=== PATIENT | female | born 1955 | race Caucasian/White ===

== ENCOUNTER 2017-03-05 08:56 | Observation (INO) | payer OTHER, SELFPAY ==
[~2017-03-05 08:56] MED LIST: Bupivacaine 0.25%/EPINEPHrine 1:200,000 10 ML SDV ONE; Lidocaine 2% 5 ML SDV ONE; Midazolam 1 MG/ML 2 ML SDV ONE; Octyl 2-Cyanoacrylate 1 Tube ONE; Ondansetron 4 MG/2 ML SDV ONE; Propofol 200 MG/20 ML SDV ONE; Rocuronium 10 MG/ML 10 ML Syringe ONE; Scopolamine 1.5 MG Transdermal Patch TRDERM PRN; fentaNYL 100 MCG/2 ML SDV ONE
[2017-03-05] MEDS ORDERED: Bupivacaine 0.25%/EPINEPHrine 1:200,000 10 ML SDV INJECT ONE (09:00)
[2017-03-05] MEDS: Lactated Ringers 1,000 ML IV SCH ×2 (09:20→19:22)
--- NOTE | 2017-03-05 09:20 | PCM.PREANE ---
Preanesthetic Assessment - Anesthesia/Transfusion/Family Hx Anesthesia History: Prior Anesthesia Without Reaction Family History of Anesthesia Reaction: No Transfusion History: No Prior Transfusion(s) Intubation History: Unknown - Review of Systems General: No Symptoms Pulmonary: No Symptoms Cardiovascular: No Symptoms Gastrointestinal: No Symptoms Neurological: No Symptoms Other: Reports: None - Physical Assessment O2 Sat by Pulse Oximetry: 95 Respiratory Rate: 16 Vital Signs: Last Vital Signs Temp 35.6 C 03/05/17 09:10 Pulse 78 03/05/17 09:10 Resp 16 03/05/17 09:10 BP 180/80 H 03/05/17 09:10 Pulse Ox 95 03/05/17 09:10 Height: 1.73 m Weight: 156.036 kg ASA Class: 3 Mental Status: Alert & Oriented x3 Airway Class: Mallampati = 3 Dentition: Reports: Normal Dentition, Broken Tooth/Teeth (lower front (right) x1 ) Thyro-Mental Finger Breadths: 3 Mouth Opening Finger Breadths: 2 ROM/Head Extension: Full Lungs: Clear to Auscultation, Normal Respiratory Effort Cardiovascular: Regular Rate, Regular Rhythm - Allergies Allergies/Adverse Reactions: Allergies Allergy/AdvReac Type Severity Reaction Status Date / Time No Known Allergies Allergy Verified 04/18/15 13:10 - Blood Blood Available: No - Anesthesia Plan Pre-Op Medication Ordered: None - Acknowledgements Anesthesia Type Planned: General Anesthesia Pt an Appropriate Candidate for the Planned Anesthesia: Yes Alternatives and Risks of Anesthesia Discussed w Pt/Guardian: Yes Pt/Guardian Understands and Agrees with Anesthesia Plan: Yes PreAnesthesia Questionnaire HEENT History: Reports: Other (See Below) Other HEENT History: wears glasses, has chipped bottom tooth Cardiovascular History: Reports: Hypertension Respiratory History: Reports: Sleep Apnea Other Respiratory History: uses CPAP Gastrointestinal History: Reports: Helicobacter Pylori Musculoskeletal History: Reports: Arthritis, Back Pain, Chronic Endocrine/Metabolic History: Reports: None (morbid obesity BMI 52.3), Obesity/ BMI 30+ - Past Surgical History Head Surgeries/Procedures: Reports: None HEENT Surgical History: Reports: Eye Surgery GI Surgical History: Reports: Bariatric Procedure, Other (See Below) Other GI Surgeries/Procedures: lap band 2007 - SUBSTANCE USE Smoking Status *Q: Never Smoker Second Hand Smoke Exposure: No Recreational Drug Use History: No - HOME MEDS Home Medications: Home Meds Cholecalciferol (Vitamin D3) [Vitamin D] 5,000 unit PO ASDIRECTED 04/18/15 [ History] Magnesium 500 mg PO DAILY 04/18/15 [History] Turmeric Root Extract [Turmeric] 500 mg PO DAILY 04/18/15 [History] Ubidecarenone [Coq-10] 300 mg PO BID 04/18/15 [History] Carbamide Peroxide [Ear Drops] 2 drop EARBOTH ASDIRECTED PRN 02/26/17 [History] Fluticasone Propionate [Flonase Allergy Relief] 2 spray NASBOTH ASDIRECTED PRN 02/26/17 [History] Losartan Potassium 25 mg PO BEDTIME 02/26/17 [History] Methylsulfonylmethane [MSM] 500 mg PO DAILY 02/26/17 [History] Metoprolol Succinate 100 mg PO BEDTIME 02/26/17 [History] Naproxen Sodium [Aleve] 2 tab PO BID 02/26/17 [History] - CURRENT (IN HOUSE) MEDS Current Meds: Current Medications Hydrocodone Bitart/Acetaminophen ([place] 325-5 Mg) 1 tab PO Q4H PRN PRN Reason: Pain Bupivacaine Liposome (Exparel) 20 ml INFILT ONETIME ONE Stop: 03/05/17 12:01 Cephalexin (Keflex) 500 mg PO Q6HR GINGER Cefazolin Sodium/Dextrose 2 gm (/ Premix) 50 mls @ 100 mls/hr IV ONETIME ONE Stop: 03/05/17 11:29 Lactated Ringer's (Ringers, Lactated) 1,000 mls @ 125 mls/hr IV ASDIRECTED GINGER Morphine Sulfate (Morphine) 2 mg IVPUSH Q1H PRN PRN Reason: Pain (severe 7-10) Scopolamine (Transderm-Scop) 1.5 mg TRDERM .ONCE PRN PRN Reason: Post Op Nausea Discontinued Medications Bupivacaine HCl/Epinephrine Bitart ([place] 0.25%/Epinephrine 1:200,000) 30 ml INJECT ONETIME ONE Stop: 03/05/17 09:01 Bupivacaine HCl/Epinephrine Bitart ([place] 0.25%/Epinephrine 1:200,000) Confirm Administered Dose 50 ml .ROUTE .STK-MED ONE Stop: 03/05/17 07:26 Fentanyl (Sublimaze) Confirm Administered Dose 100 mcg .ROUTE .STK-MED ONE Stop: 03/05/17 07:32 Acetaminophen (Ofirmev) Confirm Administered Dose 100 mls @ as directed IV .STK- MED ONE Stop: 03/05/17 07:35 Lidocaine (Xylocaine-Mpf 2%) Confirm Administered Dose 5 ml .ROUTE .STK-MED ONE Stop: 03/05/17 07:32 Midazolam HCl (Versed 1 Mg/Ml) Confirm Administered Dose 2 mg .ROUTE .STK-MED ONE Stop: 03/05/17 07:32 Octyl Cyanoacrylate (Dermabond Advance) Confirm Administered Dose 1 applic .ROUTE .STK-MED ONE Stop: 03/05/17 07:26 Ondansetron HCl (Zofran) Confirm Administered Dose 4 mg .ROUTE .STK-MED ONE Stop: 03/05/17 07:32 Propofol (Diprivan 20 Ml) Confirm Administered Dose 200 mg .ROUTE .STK-MED ONE Stop: 03/05/17 07:32 Rocuronium [place] (Zemuron) Confirm Administered Dose 100 mg .ROUTE .STK-MED ONE Stop: 03/05/17 07:32
[2017-03-05] MEDS ORDERED: HYDROmorphone 2 MG/ML Syringe ONE ×2 (10:07→10:49)
[2017-03-05] MEDS ORDERED: diphenhydrAMINE 50 MG/ML SDV ONE (10:07)
[2017-03-05] MEDS ORDERED: Dexamethasone 4 MG/ML 5 ML MDV ONE (10:07)
[2017-03-05] MEDS ORDERED: Phenylephrine/Normal Saline 100 MCG/ML 10 ML Syringe ONE (10:11)
[2017-03-05] MEDS ORDERED: fentaNYL 100 MCG/2 ML SDV ONE (10:19)
[2017-03-05] MEDS ORDERED: fentaNYL 100 MCG/2 ML SDV IVPUSH PRN (10:57)
[2017-03-05] MEDS ORDERED: ceFAZolin 2 GM in Premix Bag 1 BAG IV ONE (11:00)
[2017-03-05] MEDS ORDERED: ePHEDrine 50 MG/ML SDV ONE (11:33)
[2017-03-05] MEDS ORDERED: Rocuronium 10 MG/ML 10 ML Syringe ONE (11:49)
[2017-03-05] MEDS ORDERED: Bupivacaine Liposome 1.3% 20 ML SDV INFILT ONE (12:00)
[2017-03-05] MEDS ORDERED: Ketorolac 30 MG/ML SDV ONE (13:40)
--- NOTE | 2017-03-05 14:29 | PCM.POSTAN ---
POST ANESTHESIA ASSESSMENT - VITAL SIGNS Pulse Rate: 89 SaO2: 96 Resp Rate: 14 Blood Pressure: 135/75 - RESPIRATORY Respiratory Status: Respiratory Rate WNL - CARDIOVASCULAR CV Status: Pulse Rate WNL - GASTROINTESTINAL GI Status: No Symptoms - PAIN Pain Score: 3 - OBSERVATIONS Free Text/Narrative:: awake and alert
--- NOTE | 2017-03-05 14:56 | PCM.OPNOTE ---
- General Post-Op/Procedure Note Date of Surgery/Procedure: 03/05/17 Operative Procedure(s): umbilical hernai repair with panniculectomy and umbilicoplasty Pre Op Diagnosis: abdominal pannus Post-Op Diagnosis: abdominal pannus and umbilical hernia Anesthesia Technique: General ET Tube, Local Primary Surgeon: Francesca Leal Tele Grout Sewer Line Repairer: Savanah Douglas EBL in mLs: 100 Complications: None Condition: Good Free Text/Narrative:: Intake & Output 03/04/17 03/05/17 03/05/17 23:59 07:59 15:59 Intake Total 6200 Output Total 1000 Balance 5200 [id number]
--- NOTE | 2017-03-05 15:37 | OR ---
SURGEON: ROMERO MCGINNIS MD DATE OF PROCEDURE: 03/05/2017 PREOPERATIVE DIAGNOSIS: Abdominal pannus. POSTOPERATIVE DIAGNOSIS: Abdominal pannus with large umbilical hernia. PROCEDURE: Umbilical hernia repair with panniculectomy and umbilicoplasty. RHINESTONE SETTER: DEN Anthony ANESTHESIA: General ET tube and local. ESTIMATED BLOOD LOSS: 100 mL. INDICATIONS: Ms. Alexander is a 62-year-old female seen today in evaluation for a panniculectomy and umbilicoplasty. Risks and benefits of this procedure were completed with her and she was in agreement to proceed. Risks were including, but not limited to, bleeding, infection, damage to underlying or overlying structures, possible need for future interventions, possible scarring. This was done for medical necessity, though her insurance company has a preclusion on coverage of this. The patient proceeded as rhodes pay. Risks and benefits of the procedure were discussed with her and she was in agreement to proceed. Risks were including, but not limited to, bleeding, infection, damage to underlying or overlying structures, possible need for future interventions, and possible scarring. PROCEDURE IN DETAIL: After informed consent was obtained, placed on the chart, the patient was brought into the operating theater and laid in supine position. After adequate general anesthetic was obtained, the area was prepped and draped and a time-out was completed to confirm side and site. Attention was then paid to dissection over the lower abdominal incision. Dissection was carried through the skin and subcutaneous tissues taking meticulous care for hemostasis. Dissection was carried down to the abdominal wall and then elevation of the skin flap all the way up to the xiphoid process taking care to isolate the umbilicus. Unfortunately, the umbilicus was noted to have a large fat containing hernia and dissection was then paid here. A 15 blade was used to dissect through the umbilicus itself down and circumferentially around the hernia sac. Once the hernia sac was located, the fat contained in the hernia sac was pressed back into the abdominal wall and the sac itself was transected and oversewn. This was placed into the abdominal wall and the abdominal wall was sutured over top of the hernia stump. Meticulous hemostasis was obtained along this way and three [id number] 0 Ethibond sutures were used to close the large umbilical hernia. Once this was completed, attention was then paid to meticulous hemostasis of the abdominal wall. Once the abdominal wall was hemostased and copiously irrigated 0 Ethibond sutures were used in the midline for plication to repair the diastasis for her loss of domain. Once this was completed, the skin was redraped and the excess was excised for a total of 20 pounds. Once adequately excised and meticulous hemostasis had been obtained, abdominal wall to the rectus muscle plication sutures were then completed with 2-0 PDS sutures in a running fashion from the skin to the abdominal wall fascia to close the space. Once this was completed, the mons was tacked up to the pubic bone to prevent descent and then the area was again irrigated and then closed using a running 2-0 PDS suture for the fascia, running 3-0 Monocryl StrataFix suture for the deep dermis and a running 4-0 StrataFix subcuticular for the skin. Once this was closed, the Exparel had been infiltrated into the abdominal musculature and skin for a total of 20 mL, and the drain size 10 JPs were brought out laterally prior to closure and sutured in place using 3-0 Prolene sutures. Once the skin closure was complete, attention was then paid to dissection of the umbilical stump and an incision was made approximately 19 cm up from the pubic symphysis on the abdominal wall and dissection was carried through the subcutaneous fat using blunt dissection. The umbilicus was located and brought through taking care to preserve the surrounding fat given the underlying hernia dissection. Once this was completed, it was sutured in place using deep 4-0 Monocryl stitches and Dermabond. Once this was done, it was dressed with a Tegaderm border. The lower incision was dressed with Steri-Strips, Xeroform for the drains, and fluffs. A 4 XL abdominal binder was placed over the top of this. The patient tolerated this well. All counts and needles were correct at the end of the case. FOLLOWUP INSTRUCTIONS: The patient will be maintained in the hospital overnight and we will see her with any problems, questions, or concerns. We anticipate discharge within a few days. KARIN / RADHA /[id number]
[2017-03-05] MEDS ORDERED: Morphine 2 MG/ML Syringe IVPUSH PRN (15:41)
[2017-03-05] MEDS: Enoxaparin 40 MG/0.4 ML Syringe SUBCUT SCH (18:08)
[2017-03-05] MEDS: Acetaminophen/HYDROcodone 325-5 MG Tab PO PRN ×2 (18:09→23:25)
[2017-03-05] MEDS: Cephalexin 500 MG Cap PO SCH ×2 (18:09→23:22)
[2017-03-05] MEDS ORDERED: Enoxaparin 40 MG/0.4 ML Syringe ONE (18:18)
[2017-03-06] MEDS: Lactated Ringers 1,000 ML IV SCH (03:29)
[2017-03-06] MEDS: Acetaminophen/HYDROcodone 325-5 MG Tab PO PRN ×4 (05:12→20:37)
[2017-03-06] MEDS: Cephalexin 500 MG Cap PO SCH ×3 (05:13→18:13)
[2017-03-06] MEDS ORDERED: Sodium Chloride 0.9% 2.5 ML Syringe FLUSH PRN (10:23)
[2017-03-06] MEDS ORDERED: Sodium Chloride 0.9% 10 ML Syringe FLUSH PRN (10:23)
--- NOTE | 2017-03-06 10:23 | PCM.PN ---
- General Info Date of Service: 03/06/17 Admission Dx/Problem (Free Text): s/p abdominoplasty and incidental umbilical hernia repair POD 1 Subjective Update: Doing quite well with pain control and ambulating. Urinating. No bm yet and I would like to see flatus before discharge to ensure hernia repair without complication. In addition, she is getting up with some assistance. Since she does live by herself, ensuring ability to do all of the adl's herself is important. She will stay until tomorrow am to accomplish this. Functional Status: Reports: Pain Controlled, Tolerating Diet, Ambulating, Urinating, Incentive Spirometry - Review of Systems General: Denies: Fever, Weakness, Chills Gastrointestinal: Reports: Abdominal Pain. Denies: Flatus Musculoskeletal: Reports: No Symptoms Skin: Reports: No Symptoms Neurological: Reports: No Symptoms Psychiatric: Reports: No Symptoms - Patient Data Vitals - Most Recent: Last Vital Signs Temp 97.8 F 03/06/17 08:00 Pulse 83 03/06/17 08:00 Resp 22 H 03/06/17 08:00 BP 117/68 03/06/17 08:00 Pulse Ox 91 L 03/06/17 08:00 Weight - Most Recent: 344 lb I&O - Last 24 Hours: Intake & Output 03/05/17 03/06/17 03/06/17 23:59 07:59 15:59 Intake Total 1009 3096 Output Total 137 2850 Balance 872 246 Med Orders - Current: Current Medications Hydrocodone Bitart/Acetaminophen ([place] 325-5 Mg) 1 tab PO Q4H PRN PRN Reason: Pain Last Admin: 03/06/17 05:12 Dose: 1 tab Cephalexin (Keflex) 500 mg PO Q6HR [facility] Last Admin: 03/06/17 05:13 Dose: 500 mg Enoxaparin Sodium (Lovenox) 40 mg SUBCUT Q24H [facility] Last Admin: 03/05/17 18:08 Dose: 40 mg Fentanyl (Sublimaze) 50 mcg IVPUSH .Q5MIN PRN PRN Reason: Pain Last Admin: 03/05/17 14:35 Dose: 50 mcg Lactated Ringer's (Ringers, Lactated) 1,000 mls @ 125 mls/hr IV ASDIRECTED GINGER Last Admin: 03/06/17 03:29 Dose: 125 mls/hr Morphine Sulfate (Morphine) 2 mg IVPUSH Q1H PRN PRN Reason: Pain (severe 7-10) Scopolamine (Transderm-Scop) 1.5 mg TRDERM .ONCE PRN PRN Reason: Post Op Nausea Last Admin: 03/05/17 09:19 Dose: 1.5 mg Discontinued Medications Bupivacaine HCl/Epinephrine Bitart (Marcaine 0.25%/Epinephrine 1:200,000) 30 ml INJECT ONETIME ONE Stop: 03/05/17 09:01 Last Admin: 03/05/17 16:25 Dose: Not Given Bupivacaine HCl/Epinephrine Bitart (Marcaine 0.25%/Epinephrine 1:200,000) Confirm Administered Dose 50 ml .ROUTE .STK-MED ONE Stop: 03/05/17 07:26 Bupivacaine Liposome (Exparel) 20 ml INFILT ONETIME ONE Stop: 03/05/17 12:01 Last Admin: 03/05/17 16:25 Dose: Not Given Dexamethasone (Dexamethasone) Confirm Administered Dose 20 mg .ROUTE .STK-MED ONE Stop: 03/05/17 10:08 Diphenhydramine HCl (Benadryl) Confirm Administered Dose 50 mg .ROUTE .STK-MED ONE Stop: 03/05/17 10:08 Enoxaparin Sodium (Lovenox) Confirm Administered Dose 40 mg .ROUTE .STK-MED ONE Stop: 03/05/17 18:19 Last Admin: 03/05/17 18:37 Dose: Not Given Ephedrine Sulfate (Ephedrine Sulfate) Confirm Administered Dose 50 mg .ROUTE .STK-MED ONE Stop: 03/05/17 11:34 Fentanyl (Sublimaze) Confirm Administered Dose 100 mcg .ROUTE .STK-MED ONE Stop: 03/05/17 07:32 Fentanyl (Sublimaze) Confirm Administered Dose 100 mcg .ROUTE .STK-MED ONE Stop: 03/05/17 10:20 Hydromorphone HCl (Dilaudid) Confirm Administered Dose 2 mg .ROUTE .STK-MED ONE Stop: 03/05/17 10:08 Hydromorphone HCl (Dilaudid) Confirm Administered Dose 2 mg .ROUTE .STK-MED ONE Stop: 03/05/17 10:50 Cefazolin Sodium/Dextrose 2 gm (/ Premix) 50 mls @ 100 mls/hr IV ONETIME ONE Stop: 03/05/17 11:29 Last Admin: 03/05/17 16:25 Dose: Not Given Acetaminophen (Ofirmev) Confirm Administered Dose 100 mls @ as directed IV .STK- MED ONE Stop: 03/05/17 07:35 Ketorolac Tromethamine (Toradol) Confirm Administered Dose 30 mg .ROUTE .STK- MED ONE Stop: 03/05/17 13:41 Lidocaine (Xylocaine-Mpf 2%) Confirm Administered Dose 5 ml .ROUTE .STK-MED ONE Stop: 03/05/17 07:32 Midazolam HCl (Versed 1 Mg/Ml) Confirm Administered Dose 2 mg .ROUTE .STK-MED ONE Stop: 03/05/17 07:32 Octyl Cyanoacrylate (Dermabond Advance) Confirm Administered Dose 1 applic .ROUTE .STK-MED ONE Stop: 03/05/17 07:26 Ondansetron HCl (Zofran) Confirm Administered Dose 4 mg .ROUTE .STK-MED ONE Stop: 03/05/17 07:32 Phenylephrine HCl (Phenylephrine In Ns 100 Mcg/Ml) Confirm Administered Dose 1 mg .ROUTE .STK-MED ONE Stop: 03/05/17 10:12 Propofol (Diprivan 20 Ml) Confirm Administered Dose 200 mg .ROUTE .STK-MED ONE Stop: 03/05/17 07:32 Rocuronium [place] (Zemuron) Confirm Administered Dose 100 mg .ROUTE .STK-MED ONE Stop: 03/05/17 07:32 Rocuronium [place] (Zemuron) Confirm Administered Dose 100 mg .ROUTE .STK-MED ONE Stop: 03/05/17 11:50 - Exam Quality Assessment: DVT Prophylaxis (lovenox and pas boots). No: Supplemental Oxygen, Urine Catheter General: Alert, Oriented, Cooperative HEENT: EOMI Lungs: Normal Respiratory Effort Extremities: Non-Tender, No Pedal Edema Skin: Warm, Dry Wound/Incisions: Healing Well, Dressing Dry and Intact, Drainage (in PRATIBHA's is scant seosanguinous currently. ) Psy/Mental Status: Alert, Normal Affect, Normal Mood - Problem List & Annotations (1) Status post abdominoplasty SNOMED Code(s): 731822455 Code(s): Z98.890 - OTHER SPECIFIED POSTPROCEDURAL STATES Status: Acute Priority: Medium Current Visit: Yes (2) S/P hernia repair SNOMED Code(s): 51858255515618 Code(s): Z98.890 - OTHER SPECIFIED POSTPROCEDURAL STATES; Z87.19 - PERSONAL HISTORY OF OTHER DISEASES OF THE DIGESTIVE SYSTEM Status: Acute Priority: Medium Current Visit: Yes - Problem List Review Problem List Initiated/Reviewed/Updated: Yes - My Orders Last 24 Hours: My Active Orders 03/05/17 10:00 Patient Status [ADT] Routine 03/05/17 10:49 EKG 12 Lead [EKG Documentation Completion] [RC] ROUTINE 03/05/17 12:00 Acetaminophen/HYDROcodone [[place] 325-5 MG] 1 tab PO Q4H PRN 03/05/17 15:41 Ambulate [RC] ASDIRECTED Drain Management [RC] ASDIRECTED Positioning, Patient [RC] ASDIRECTED Morphine 2 mg IVPUSH Q1H PRN Abdominal Binder [OM.PC] Routine 03/05/17 19:00 Cephalexin [Keflex] 500 mg PO Q6HR Enoxaparin [Lovenox] 40 mg SUBCUT Q24H 03/05/17 Dinner Regular Diet [DIET] - Plan Plan:: Doing well and continue to improve. Pain controlled. Waiting on flatus and will recheck labs for electrolytes and hb/wbc tomorrow. HLIVF Ambulate PAS and lovenox [place] and morphine if needed keflex for drains ppx binder at all time and patient position home meds and home bipap for sleep
--- NOTE | 2017-03-06 12:59 | PCM48HPAN ---
Post Anesthesia Note - EVALUATION WITHIN 48HRS OF ANESTHETIC Vital Signs in Normal Range: Yes Patient Participated in Evaluation: Yes Respiratory Function Stable: Yes Airway Patent: Yes Cardiovascular Function Stable: Yes Hydration Status Stable: Yes Pain Control Satisfactory: Yes Nausea and Vomiting Control Satisfactory: Yes Mental Status Recovered: Yes
[2017-03-06] MEDS: Enoxaparin 40 MG/0.4 ML Syringe SUBCUT SCH (18:13)
[2017-03-06] MEDS: Losartan 50 MG Tab PO SCH ×2 (18:14→20:36)
[2017-03-06] MEDS: Metoprolol Succinate 100 MG Tab.ER PO SCH ×2 (18:14→20:36)
[2017-03-07] MEDS: Acetaminophen/HYDROcodone 325-5 MG Tab PO PRN ×3 (00:47→11:01)
[2017-03-07] MEDS: Cephalexin 500 MG Cap PO SCH ×3 (00:47→11:47)
[2017-03-07 00:51] VITALS: BP 141/97
[2017-03-07 08:53] LABS: CHLORIDE,CL 102 mmol/L (98-110); SODIUM,NA 139 mmol/L (136-146)
--- NOTE | 2017-03-07 11:52 | PCM.PN ---
- General Info Date of Service: 03/07/17 Admission Dx/Problem (Free Text): s/p abdominoplasty and incidental umbilical hernia repair POD 2 Subjective Update: Doing quite well with pain control and ambulating. Urinating. + Flatus Ready for discharge. labs as expected with hemodilution and post surgery. Functional Status: Reports: Pain Controlled, Tolerating Diet, Ambulating, Urinating. Denies: New Symptoms - Review of Systems General: Reports: No Symptoms Pulmonary: Reports: No Symptoms Musculoskeletal: Reports: No Symptoms Neurological: Reports: No Symptoms - Patient Data Vitals - Most Recent: Last Vital Signs Temp 98.7 F 03/07/17 00:49 Pulse 90 03/07/17 00:49 Resp 22 H 03/07/17 00:49 BP 141/97 H 03/07/17 00:49 Pulse Ox 94 L 03/07/17 00:49 Weight - Most Recent: 344 lb I&O - Last 24 Hours: Intake & Output 03/06/17 03/07/17 03/07/17 23:59 07:59 15:59 Intake Total 3300 Output Total 50 1593 Balance -50 1707 Lab Results Last 24 Hours: Laboratory Results - last 24 hr 03/07/17 03/07/17 Range/Units 08:07 08:07 WBC 11.09 H (4.0-11.0) K/uL RBC 3.21 L (4.30-5.90) M/uL Hgb 10.9 L (12.0-16.0) g/dL Hct 33.2 L (36.0-46.0) % MCV 103.4 H (80.0-98.0) fL MCH 34.0 H (27.0-32.0) pg MCHC 32.8 (31.0-37.0) g/dL RDW Std Deviation 47.9 (28.0-62.0) fl RDW Coeff of Earl 13 (11.0-15.0) % Plt Count 273 (150-400) K/uL MPV 10.00 (7.40-12.00) fL Nucleated RBC % 0.0 /100WBC Nucleated RBCs # 0 K/uL Sodium 139 (136-146) mmol/L Potassium 3.8 (3.5-5.1) mmol/L Chloride 102 (98-110) mmol/L Carbon Dioxide 29 (21-31) mmol/L BUN 11 (6.0-23.0) mg/dL Creatinine 0.8 (0.6-1.5) mg/dL Est Cr Clr Drug Dosing 75.44 mL/min Estimated GFR (MDRD) > 60.0 ml/min Glucose 99 (60-110) mg/dL Calcium 8.3 L (8.8-10.8) mg/dL Med Orders - Current: Current Medications Hydrocodone Bitart/Acetaminophen ([place] 325-5 Mg) 1 tab PO Q4H PRN PRN Reason: Pain Last Admin: 03/07/17 11:01 Dose: 1 tab Cephalexin (Keflex) 500 mg PO Q6HR [facility] Last Admin: 03/07/17 11:47 Dose: 500 mg Enoxaparin Sodium (Lovenox) 40 mg SUBCUT Q24H [facility] Last Admin: 03/06/17 18:13 Dose: 40 mg Fentanyl (Sublimaze) 50 mcg IVPUSH .Q5MIN PRN PRN Reason: Pain Last Admin: 03/05/17 14:35 Dose: 50 mcg Losartan Potassium (Cozaar) 25 mg PO BEDTIME [facility] Last Admin: 03/06/17 20:36 Dose: Not Given Metoprolol Succinate (Toprol Xl) 100 mg PO BEDTIME [facility] Last Admin: 03/06/17 20:36 Dose: Not Given Morphine Sulfate (Morphine) 2 mg IVPUSH Q1H PRN PRN Reason: Pain (severe 7-10) Scopolamine (Transderm-Scop) 1.5 mg TRDERM .ONCE PRN PRN Reason: Post Op Nausea Last Admin: 03/05/17 09:19 Dose: 1.5 mg Sodium Chloride (Saline Flush) 10 ml FLUSH ASDIRECTED PRN PRN Reason: Keep Vein Open Sodium Chloride (Saline Flush) 2.5 ml FLUSH ASDIRECTED PRN PRN Reason: Keep Vein Open Discontinued Medications Bupivacaine HCl/Epinephrine Bitart ([place] 0.25%/Epinephrine 1:200,000) 30 ml INJECT ONETIME ONE Stop: 03/05/17 09:01 Last Admin: 03/05/17 16:25 Dose: Not Given Bupivacaine HCl/Epinephrine Bitart ([place] 0.25%/Epinephrine 1:200,000) Confirm Administered Dose 50 ml .ROUTE .STK-MED ONE Stop: 03/05/17 07:26 Bupivacaine Liposome (Exparel) 20 ml INFILT ONETIME ONE Stop: 03/05/17 12:01 Last Admin: 03/05/17 16:25 Dose: Not Given Dexamethasone (Dexamethasone) Confirm Administered Dose 20 mg .ROUTE .STK-MED ONE Stop: 03/05/17 10:08 Diphenhydramine HCl (Benadryl) Confirm Administered Dose 50 mg .ROUTE .STK-MED ONE Stop: 03/05/17 10:08 Enoxaparin Sodium (Lovenox) Confirm Administered Dose 40 mg .ROUTE .STK-MED ONE Stop: 03/05/17 18:19 Last Admin: 03/05/17 18:37 Dose: Not Given Ephedrine Sulfate (Ephedrine Sulfate) Confirm Administered Dose 50 mg .ROUTE .STK-MED ONE Stop: 03/05/17 11:34 Fentanyl (Sublimaze) Confirm Administered Dose 100 mcg .ROUTE .STK-MED ONE Stop: 03/05/17 07:32 Fentanyl (Sublimaze) Confirm Administered Dose 100 mcg .ROUTE .STK-MED ONE Stop: 03/05/17 10:20 Hydromorphone HCl (Dilaudid) Confirm Administered Dose 2 mg .ROUTE .STK-MED ONE Stop: 03/05/17 10:08 Hydromorphone HCl (Dilaudid) Confirm Administered Dose 2 mg .ROUTE .STK-MED ONE Stop: 03/05/17 10:50 Cefazolin Sodium/Dextrose 2 gm (/ Premix) 50 mls @ 100 mls/hr IV ONETIME ONE Stop: 03/05/17 11:29 Last Admin: 03/05/17 16:25 Dose: Not Given Lactated Ringer's (Ringers, Lactated) 1,000 mls @ 125 mls/hr IV ASDIRECTED [facility] Last Admin: 03/06/17 03:29 Dose: 125 mls/hr Acetaminophen (Ofirmev) Confirm Administered Dose 100 mls @ as directed IV .STK- MED ONE Stop: 03/05/17 07:35 Ketorolac Tromethamine (Toradol) Confirm Administered Dose 30 mg .ROUTE .STK- MED ONE Stop: 03/05/17 13:41 Lidocaine (Xylocaine-Mpf 2%) Confirm Administered Dose 5 ml .ROUTE .STK-MED ONE Stop: 03/05/17 07:32 Midazolam HCl (Versed 1 Mg/Ml) Confirm Administered Dose 2 mg .ROUTE .STK-MED ONE Stop: 03/05/17 07:32 Octyl Cyanoacrylate (Dermabond [place]) Confirm Administered Dose 1 applic .ROUTE .STK-MED ONE Stop: 03/05/17 07:26 Ondansetron HCl (Zofran) Confirm Administered Dose 4 mg .ROUTE .STK-MED ONE Stop: 03/05/17 07:32 Phenylephrine HCl (Phenylephrine In Ns 100 Mcg/Ml) Confirm Administered Dose 1 mg .ROUTE .STK-MED ONE Stop: 03/05/17 10:12 Propofol (Diprivan 20 Ml) Confirm Administered Dose 200 mg .ROUTE .STK-MED ONE Stop: 03/05/17 07:32 Rocuronium [place] (Zemuron) Confirm Administered Dose 100 mg .ROUTE .STK-MED ONE Stop: 03/05/17 07:32 Rocuronium [place] (Zemuron) Confirm Administered Dose 100 mg .ROUTE .STK-MED ONE Stop: 03/05/17 11:50 - Exam Quality Assessment: DVT Prophylaxis (lovenox). No: Supplemental Oxygen, Urine Catheter, Skin Breakdown (anterior abdomen will likely breakdown some but nothing posteriorly. ) General: Alert, Oriented, Cooperative HEENT: Pupils Equal, Pupils Reactive Lungs: Normal Respiratory Effort Extremities: No Pedal Edema Skin: Warm, Dry Wound/Incisions: Healing Well (umbilicus viable with minor central skin loss. Lower abdominal central skin with darkening. Likely will slough here, but overall intact and healing nicely. ), Drainage (PRATIBHA with some increase overnight but serosanguinous as expected. ) Neurological: No New Focal Deficit Psy/Mental Status: Alert, Normal Affect, Normal Mood - Problem List & Annotations (1) Status post abdominoplasty SNOMED Code(s): 863880498 Code(s): Z98.890 - OTHER SPECIFIED POSTPROCEDURAL STATES Status: Acute Priority: Medium Current Visit: Yes (2) S/P hernia repair SNOMED Code(s): 62960841612329 Code(s): Z98.890 - OTHER SPECIFIED POSTPROCEDURAL STATES; Z87.19 - PERSONAL HISTORY OF OTHER DISEASES OF THE DIGESTIVE SYSTEM Status: Acute Priority: Medium Current Visit: Yes - Problem List Review Problem List Initiated/Reviewed/Updated: Yes - My Orders Last 24 Hours: My Active Orders 03/06/17 17:10 Losartan [Cozaar] 25 mg PO BEDTIME Metoprolol Succinate [Toprol XL] 100 mg PO BEDTIME - Plan Plan:: Doing well and continue to improve. Pain controlled. Labs within normal limits. Ambulate - will d/c lovenox for home - flex legs and walk per usual. [place] script keflex for drains ppx binder at all times home meds and home bipap for sleep
== END 2017-03-07 14:25 | disposition home or self-care (01) ==
LOC: MW.SDS 08:56 → MW.MS 15:39 → MW.SDS 17:24 → MW.MS 17:27
PROVIDERS: ADMIT Plastic Surgery; ATTEND Plastic Surgery
DX: E65 Localized adiposity (principal); K42.9 Umbilical hernia without obstruction or gangrene; M17.0 Bilateral primary osteoarthritis of knee; I10 Essential (primary) hypertension; E66.01 Morbid (severe) obesity due to excess calories; G47.33 Obstructive sleep apnea (adult) (pediatric); Z79.899 Other long term (current) drug therapy; Z98.84 Bariatric surgery status; Z98.890 Other specified postprocedural states; Z99.89 Dependence on other enabling machines and devices; Z68.43 Body mass index [BMI] 50.0-59.9, adult
CPT/HCPCS: 15830; 15847; 36415; 49585; 80048; 85027; 88302; 93005; A9270; G0378; J1100; J1170; J1200; J1650; J1885; J2250; J2405; J3010; J7120; 00802; J2704

== ENCOUNTER 2017-03-24 06:44 | Observation (INO) | payer BC, OTHER, SELFPAY ==
[~2017-03-24 06:44] MED LIST changes: +Bupivacaine 0.25% 10 ML SDV INJECT ONE; -Bupivacaine 0.25%/EPINEPHrine 1:200,000 10 ML SDV ONE; -Lidocaine 2% 5 ML SDV ONE; -Midazolam 1 MG/ML 2 ML SDV ONE; -Octyl 2-Cyanoacrylate 1 Tube ONE; -Ondansetron 4 MG/2 ML SDV ONE; -Propofol 200 MG/20 ML SDV ONE; -Rocuronium 10 MG/ML 10 ML Syringe ONE; -Scopolamine 1.5 MG Transdermal Patch TRDERM PRN; +ceFAZolin 2 GM in Premix Bag 1 BAG IV ONE; -fentaNYL 100 MCG/2 ML SDV ONE
[2017-03-24] MEDS ORDERED: Scopolamine 1.5 MG Transdermal Patch TRDERM PRN (06:57)
[2017-03-24] MEDS ORDERED: Propofol 200 MG/20 ML SDV ONE (07:11)
[2017-03-24] MEDS ORDERED: Midazolam 1 MG/ML 2 ML SDV ONE (07:11)
[2017-03-24] MEDS ORDERED: Lidocaine 2% 5 ML SDV ONE (07:11)
[2017-03-24] MEDS ORDERED: fentaNYL 100 MCG/2 ML SDV ONE ×2 (07:11→09:30)
[2017-03-24] MEDS ORDERED: Ondansetron 4 MG/2 ML SDV ONE (07:11)
[2017-03-24] MEDS ORDERED: Acetaminophen 1,000 MG in Premix Bag 1 BAG IV SCH (07:15)
[2017-03-24] MEDS ORDERED: diphenhydrAMINE 50 MG/ML SDV ONE ×2 (07:15→11:00)
[2017-03-24] MEDS ORDERED: Dexamethasone 4 MG/ML 5 ML MDV ONE (07:15)
[2017-03-24] MEDS: Lactated Ringers 1,000 ML IV SCH ×2 (07:28→16:57)
--- NOTE | 2017-03-24 07:32 | PCM.PREANE ---
Preanesthetic Assessment - Anesthesia/Transfusion/Family Hx Anesthesia History: Prior Anesthesia Without Reaction Family History of Anesthesia Reaction: No Transfusion History: No Prior Transfusion(s) Intubation History: Unknown - Review of Systems General: No Symptoms Pulmonary: No Symptoms Cardiovascular: No Symptoms Gastrointestinal: No Symptoms Neurological: No Symptoms Other: Reports: None - Physical Assessment NPO Status Date: 03/23/17 Height: 1.73 m Weight: 143.789 kg ASA Class: 2 Mental Status: Alert & Oriented x3 Airway Class: Mallampati = 2 Dentition: Reports: Normal Dentition ROM/Head Extension: Full Lungs: Clear to Auscultation, Normal Respiratory Effort Cardiovascular: Regular Rate, Regular Rhythm - Allergies Allergies/Adverse Reactions: Allergies Allergy/AdvReac Type Severity Reaction Status Date / Time No Known Allergies Allergy Verified 03/23/17 13:24 - Blood Blood Available: Yes - Anesthesia Plan Pre-Op Medication Ordered: None - Acknowledgements Anesthesia Type Planned: General Anesthesia Pt an Appropriate Candidate for the Planned Anesthesia: Yes Alternatives and Risks of Anesthesia Discussed w Pt/Guardian: Yes Pt/Guardian Understands and Agrees with Anesthesia Plan: Yes PreAnesthesia Questionnaire HEENT History: Reports: Other (See Below) Other HEENT History: wears glasses, has chipped bottom tooth Cardiovascular History: Reports: Hypertension Respiratory History: Reports: Sleep Apnea Other Respiratory History: uses CPAP Gastrointestinal History: Reports: Helicobacter Pylori Musculoskeletal History: Reports: Arthritis, Back Pain, Chronic Endocrine/Metabolic History: Reports: Obesity/BMI 30+ - Past Surgical History Head Surgeries/Procedures: Reports: None HEENT Surgical History: Reports: Eye Surgery GI Surgical History: Reports: Bariatric Procedure, Other (See Below) Other GI Surgeries/Procedures: lap band 2007, recent Abdominoplasty - SUBSTANCE USE Smoking Status *Q: Never Smoker Second Hand Smoke Exposure: No Recreational Drug Use History: No - HOME MEDS Home Medications: Home Meds Losartan Potassium 25 mg PO BEDTIME 02/26/17 [History] Metoprolol Succinate 100 mg PO BEDTIME 02/26/17 [History] - CURRENT (IN HOUSE) MEDS Current Meds: Current Medications Hydrocodone Bitart/Acetaminophen ([place] 325-5 Mg) 1 tab PO Q4H PRN PRN Reason: Pain Lactated Ringer's (Ringers, Lactated) 1,000 mls @ 125 mls/hr IV ASDIRECTED [facility] Last Admin: 03/24/17 07:28 Dose: 125 mls/hr Acetaminophen 1,000 mg/ Premix 100 mls @ 400 mls/hr IV .QNOW [facility] Last Admin: 03/24/17 07:28 Dose: 400 mls/hr Scopolamine (Transderm-Scop) 1.5 mg TRDERM .ONCE PRN PRN Reason: Post Op Nausea Last Admin: 03/24/17 07:27 Dose: 1.5 mg Discontinued Medications Bupivacaine HCl (Sensorcaine-Mpf 0.25%) 10 ml INJECT ONETIME ONE Stop: 03/23/17 16:49 Dexamethasone (Dexamethasone) Confirm Administered Dose 20 mg .ROUTE .STK-MED ONE Stop: 03/24/17 07:16 Diphenhydramine HCl (Benadryl) Confirm Administered Dose 50 mg .ROUTE .STK-MED ONE Stop: 03/24/17 07:16 Fentanyl (Sublimaze) Confirm Administered Dose 100 mcg .ROUTE .STK-MED ONE Stop: 03/24/17 07:12 Cefazolin Sodium/Dextrose 2 gm (/ Premix) 50 mls @ 100 mls/hr IV ONETIME ONE Stop: 03/23/17 17:17 Lidocaine (Xylocaine-Mpf 2%) Confirm Administered Dose 5 ml .ROUTE .STK-MED ONE Stop: 03/24/17 07:12 Midazolam HCl (Versed 1 Mg/Ml) Confirm Administered Dose 2 mg .ROUTE .STK-MED ONE Stop: 03/24/17 07:12 Ondansetron HCl (Zofran) Confirm Administered Dose 4 mg .ROUTE .STK-MED ONE Stop: 03/24/17 07:12 Propofol (Diprivan 20 Ml) Confirm Administered Dose 400 mg .ROUTE .STK-MED ONE Stop: 03/24/17 07:12
[2017-03-24] MEDS ORDERED: Bupivacaine 0.25% 10 ML SDV ONE (07:36)
[2017-03-24] MEDS ORDERED: HYDROmorphone 2 MG/ML Syringe ONE (08:10)
[2017-03-24] MEDS ORDERED: fentaNYL 100 MCG/2 ML SDV IVPUSH PRN (08:24)
[2017-03-24] MEDS ORDERED: Dermabond Prineo 1 Tube TOP ONE (09:40)
[2017-03-24] MEDS ORDERED: Morphine 2 MG/ML Syringe IVPUSH PRN (10:20)
[2017-03-24] MEDS ORDERED: Ondansetron 4 MG Tab.DIS PO PRN (10:20)
--- NOTE | 2017-03-24 10:23 | PCM.OPNOTE ---
- General Post-Op/Procedure Note Date of Surgery/Procedure: 03/24/17 Operative Procedure(s): debridement and closure of abdominal wound dehiscence Pre Op Diagnosis: compromise of umbilical stump post hernia repair with wound dehiscence Post-Op Diagnosis: Same Anesthesia Technique: General ET Tube, Local Primary Surgeon: Francesca Leal Information Writer: Savanah Douglas Surgical Drain/Tube Type: [place] Drain (x2 on right side) Complications: None Condition: Good
[2017-03-24] MEDS ORDERED: diphenhydrAMINE 50 MG/ML SDV IVPUSH ONE (10:53)
--- NOTE | 2017-03-24 11:35 | PCM.POSTAN ---
POST ANESTHESIA ASSESSMENT - MENTAL STATUS Mental Status: Alert, Oriented - RESPIRATORY Respiratory Status: Respiratory Rate WNL, Airway Patent, O2 Saturation Stable - CARDIOVASCULAR CV Status: Pulse Rate WNL, Blood Pressure Stable - GASTROINTESTINAL GI Status: No Symptoms - POST OP HYDRATION Hydration Status: Adequate & Stable
[2017-03-24] MEDS: Acetaminophen/HYDROcodone 325-5 MG Tab PO PRN ×3 (12:54→21:02)
[2017-03-24] MEDS: Cephalexin 500 MG Cap PO SCH ×2 (12:54→17:04)
[2017-03-24] MEDS: Enoxaparin 40 MG/0.4 ML Syringe SUBCUT SCH (14:14)
[2017-03-24] MEDS ORDERED: Acetaminophen/HYDROcodone 325-5 MG Tab PO PRN (16:48)
[2017-03-24] MEDS ORDERED: LOSARTAN 25 MG PO SCH (21:00)
[2017-03-24] MEDS ORDERED: METOPROLOL SUCCINATE 100 MG PO SCH (21:00)
[2017-03-25] MEDS: Cephalexin 500 MG Cap PO SCH ×6 (00:39→23:11)
[2017-03-25] MEDS: Acetaminophen/HYDROcodone 325-5 MG Tab PO PRN ×6 (00:40→23:11)
[2017-03-25] MEDS: Lactated Ringers 1,000 ML IV SCH (00:57)
[2017-03-25] MEDS ORDERED: Sodium Chloride 0.9% 2.5 ML Syringe FLUSH PRN ×2 (10:21→18:45)
[2017-03-25] MEDS ORDERED: Sodium Chloride 0.9% 10 ML Syringe FLUSH PRN ×2 (10:21→18:45)
[2017-03-25] MEDS: Enoxaparin 40 MG/0.4 ML Syringe SUBCUT SCH (11:02)
[2017-03-25] MEDS ORDERED: Ondansetron 4 MG Tab.DIS PO PRN (18:44)
[2017-03-25] MEDS ORDERED: Morphine 2 MG/ML Syringe IVPUSH PRN (18:44)
[2017-03-25] MEDS ORDERED: Codeine/guaiFENesin 100-10 MG/5 ML Syrup 5 ML Cup PO PRN (18:57)
[2017-03-25] MEDS ORDERED: guaiFENesin/Dextromethorphan 100-10 MG/5 ML Syrup 237 ML Bottle PO PRN (20:14)
[2017-03-25] MEDS ORDERED: LOSARTAN 25 MG PO SCH (21:00)
[2017-03-25] MEDS ORDERED: METOPROLOL SUCCINATE 100 MG PO SCH (21:00)
[2017-03-25] MEDS: guaiFENesin/Dextromethorphan 100-10 MG/5 ML Soln 10 ML Cup PO PRN (21:10)
[2017-03-26] MEDS: Acetaminophen/HYDROcodone 325-5 MG Tab PO PRN ×3 (03:57→14:17)
[2017-03-26] MEDS: guaiFENesin/Dextromethorphan 100-10 MG/5 ML Soln 10 ML Cup PO PRN ×3 (03:58→14:25)
[2017-03-26] MEDS: Cephalexin 500 MG Cap PO SCH ×2 (05:54→12:01)
[2017-03-26] MEDS ORDERED: Enoxaparin 40 MG/0.4 ML Syringe SUBCUT SCH (10:30)
[2017-03-26 13:00] VITALS: BP 118/74
--- NOTE | 2017-03-26 15:27 | PCM.PN ---
- General Info Date of Service: 03/25/17 Functional Status: Reports: Pain Controlled, Tolerating Diet, Ambulating ( needing assistance to get up. ), Incentive Spirometry - Review of Systems General: Reports: No Symptoms Pulmonary: Reports: Cough. Denies: Sputum Cardiovascular: Reports: No Symptoms Gastrointestinal: Reports: No Symptoms - Patient Data Vitals - Most Recent: Last Vital Signs Temp 97.9 F 03/26/17 12:00 Pulse 85 03/26/17 12:00 Resp 16 03/26/17 12:00 BP 118/74 03/26/17 12:00 Pulse Ox 90 L 03/26/17 12:00 Weight - Most Recent: 317 lb I&O - Last 24 Hours: Intake & Output 03/25/17 03/26/17 03/26/17 23:59 07:59 15:59 Intake Total 1050 1000 Output Total 1965 22 80 Balance -915 978 -80 Med Orders - Current: Current Medications Hydrocodone Bitart/Acetaminophen ([place] 325-5 Mg) 2 tab PO Q4H PRN PRN Reason: Pain Last Admin: 03/26/17 14:17 Dose: 2 tab Cephalexin (Keflex) 500 mg PO Q6HR [facility] Last Admin: 03/26/17 12:01 Dose: 500 mg Enoxaparin Sodium (Lovenox) 40 mg SUBCUT Q24H [facility] Last Admin: 03/26/17 10:59 Dose: Not Given Guaifenesin/Dextromethorphan (Robitussin Dm) 5 ml PO Q4H PRN PRN Reason: Cough Last Admin: 03/26/17 14:25 Dose: 5 ml Lactated Ringer's (Ringers, Lactated) 1,000 mls @ 125 mls/hr IV ASDIRECTED [facility] Last Admin: 03/25/17 00:57 Dose: 125 mls/hr Metoprolol Succinate (Toprol Xl) 100 mg PO BEDTIME [facility] Last Admin: 03/25/17 21:02 Dose: 100 mg Morphine Sulfate (Morphine) 2 mg IVPUSH Q2H PRN PRN Reason: Pain Ondansetron HCl (Zofran Odt) 4 mg PO Q4H PRN PRN Reason: Nausea/Vomiting Losartan 25 Mg Tab* (Pt Own Med*) 0 each PO BEDTIME [facility] Last Admin: 03/25/17 21:02 Dose: 1 each Scopolamine (Transderm-Scop) 1.5 mg TRDERM .ONCE PRN PRN Reason: Post Op Nausea Last Admin: 03/24/17 07:27 Dose: 1.5 mg Sodium Chloride (Saline Flush) 10 ml FLUSH ASDIRECTED PRN PRN Reason: Keep Vein Open Sodium Chloride (Saline Flush) 2.5 ml FLUSH ASDIRECTED PRN PRN Reason: Keep Vein Open Discontinued Medications Hydrocodone Bitart/Acetaminophen ([place] 325-5 Mg) 1 tab PO Q4H PRN PRN Reason: Pain Hydrocodone Bitart/Acetaminophen ([place] 325-5 Mg) 2 tab PO Q4H PRN PRN Reason: Pain Last Admin: 03/25/17 12:58 Dose: 2 tab Bupivacaine HCl (Sensorcaine-Mpf 0.25%) 10 ml INJECT ONETIME ONE Stop: 03/23/17 16:49 Last Admin: 03/24/17 10:58 Dose: Not Given Bupivacaine HCl (Sensorcaine-Mpf 0.25%) Confirm Administered Dose 20 ml .ROUTE .STK-MED ONE Stop: 03/24/17 07:37 Cephalexin (Keflex) 500 mg PO Q6HR [facility] Last Admin: 03/25/17 20:49 Dose: Not Given Cephalexin (Keflex) 500 mg PO Q6HR [facility] Dexamethasone (Dexamethasone) Confirm Administered Dose 20 mg .ROUTE .STK-MED ONE Stop: 03/24/17 07:16 Diphenhydramine HCl (Benadryl) Confirm Administered Dose 50 mg .ROUTE .STK-MED ONE Stop: 03/24/17 07:16 Diphenhydramine HCl (Benadryl) 25 mg IVPUSH ONETIME ONE Stop: 03/24/17 10:54 Last Admin: 03/24/17 11:03 Dose: 12.5 mg Diphenhydramine HCl (Benadryl) Confirm Administered Dose 50 mg .ROUTE .STK-MED ONE Stop: 03/24/17 11:01 Last Admin: 03/24/17 13:11 Dose: Not Given Enoxaparin Sodium (Lovenox) 40 mg SUBCUT Q24H [facility] Last Admin: 03/25/17 11:02 Dose: 40 mg Fentanyl (Sublimaze) Confirm Administered Dose 100 mcg .ROUTE .STK-MED ONE Stop: 03/24/17 07:12 Fentanyl (Sublimaze) 50 mcg IVPUSH .Q5MIN PRN PRN Reason: Pain Last Admin: 03/24/17 10:45 Dose: 50 mcg Fentanyl (Sublimaze) Confirm Administered Dose 100 mcg .ROUTE .STK-MED ONE Stop: 03/24/17 09:31 Guaifenesin/Codeine Phosphate (Robitussin Ac) 5 ml PO Q4H PRN PRN Reason: Cough Hydromorphone HCl (Dilaudid) Confirm Administered Dose 2 mg .ROUTE .STK-MED ONE Stop: 03/24/17 08:11 Cefazolin Sodium/Dextrose 2 gm (/ Premix) 50 mls @ 100 mls/hr IV ONETIME ONE Stop: 03/23/17 17:17 Last Admin: 03/24/17 10:58 Dose: Not Given Acetaminophen 1,000 mg/ Premix 100 mls @ 400 mls/hr IV .QNOW [facility] Last Admin: 03/24/17 07:28 Dose: 400 mls/hr Lidocaine (Xylocaine-Mpf 2%) Confirm Administered Dose 5 ml .ROUTE .STK-MED ONE Stop: 03/24/17 07:12 Metoprolol Succinate (Toprol Xl) 100 mg PO BEDTIME [facility] Last Admin: 03/24/17 21:26 Dose: Not Given Midazolam HCl (Versed 1 Mg/Ml) Confirm Administered Dose 2 mg .ROUTE .STK-MED ONE Stop: 03/24/17 07:12 Morphine Sulfate (Morphine) 2 mg IVPUSH Q2H PRN PRN Reason: Pain Octyl Cyanoacrylate (Dermabond [place]) 1 applic TOP .STK-MED ONE Stop: 03/24/17 09:41 Ondansetron HCl (Zofran) Confirm Administered Dose 4 mg .ROUTE .STK-MED ONE Stop: 03/24/17 07:12 Ondansetron HCl (Zofran Odt) 4 mg PO Q4H PRN PRN Reason: Nausea/Vomiting Losartan 25 Mg Tab* (Pt Own Med*) 0 each PO BEDTIME [facility] Last Admin: 03/24/17 21:26 Dose: Not Given Propofol (Diprivan 20 Ml) Confirm Administered Dose 400 mg .ROUTE .STK-MED ONE Stop: 03/24/17 07:12 Sodium Chloride (Saline Flush) 10 ml FLUSH ASDIRECTED PRN PRN Reason: Keep Vein Open Sodium Chloride (Saline Flush) 2.5 ml FLUSH ASDIRECTED PRN PRN Reason: Keep Vein Open - Exam Quality Assessment: DVT Prophylaxis (lovenox and ambulating) General: Alert, Oriented, Cooperative HEENT: Pupils Equal Lungs: Normal Respiratory Effort Extremities: Normal Inspection Wound/Incisions: Healing Well, Dressing Dry and Intact, Drainage ( serosanguinous in kee's. ) Neurological: No New Focal Deficit Psy/Mental Status: Alert, Normal Affect, Normal Mood - Problem List & Annotations (1) Wound dehiscence, surgical SNOMED Code(s): 500337718 Code(s): T81.31XA - DISRUPTION OF EXTERNAL OPERATION (SURGICAL) WOUND, NEC, INIT Status: Acute Priority: High Current Visit: Yes Qualifiers: Encounter type: initial encounter Qualified Code(s): T81.31XA - Disruption of external operation (surgical) wound, not elsewhere classified, initial encounter (2) S/P hernia repair SNOMED Code(s): 84581575796013 Code(s): Z98.890 - OTHER SPECIFIED POSTPROCEDURAL STATES; Z87.19 - PERSONAL HISTORY OF OTHER DISEASES OF THE DIGESTIVE SYSTEM Status: Acute Priority: Medium Current Visit: No - Problem List Review Problem List Initiated/Reviewed/Updated: Yes - My Orders Last 24 Hours: My Active Orders 03/25/17 18:00 Cephalexin [Keflex] 500 mg PO Q6HR 03/25/17 18:43 Acetaminophen/HYDROcodone [[place] 325-5 MG] 2 tab PO Q4H PRN 03/25/17 18:44 Morphine 2 mg IVPUSH Q2H PRN Ondansetron [Zofran ODT] 4 mg PO Q4H PRN 03/25/17 18:45 Sodium Chloride 0.9% [Saline Flush] 10 ml FLUSH ASDIRECTED PRN Sodium Chloride 0.9% [Saline Flush] 2.5 ml FLUSH ASDIRECTED PRN 03/25/17 21:00 Metoprolol Succinate [Toprol XL] 100 mg PO BEDTIME Patient's Own Medication [Ptom] 0 each PO BEDTIME 03/25/17 21:06 Dextromethorphan/guaiFENesin [Robitussin DM] 5 ml PO Q4H PRN 03/26/17 10:30 Enoxaparin [Lovenox] 40 mg SUBCUT Q24H 03/26/17 15:23 Ready for Discharge [RC] PER UNIT ROUTINE - Plan Plan:: Doing well and will plan home tomorrow as needing assistance to get up to bathroom and ambulate. Otherwise feeling well.
--- NOTE | 2017-03-26 15:30 | PCM.PN ---
- General Info Date of Service: 03/26/17 Subjective Update: much improved today with just some coughing. Feeling well otherwise. Wants home. Incision healing well and no skin compromise. Excellent healing. Functional Status: Reports: Pain Controlled, Tolerating Diet, Ambulating - Review of Systems General: Reports: No Symptoms Pulmonary: Reports: No Symptoms Musculoskeletal: Reports: No Symptoms Skin: Reports: No Symptoms - Patient Data Vitals - Most Recent: Last Vital Signs Temp 97.9 F 03/26/17 12:00 Pulse 85 03/26/17 12:00 Resp 16 03/26/17 12:00 BP 118/74 03/26/17 12:00 Pulse Ox 90 L 03/26/17 12:00 Weight - Most Recent: 317 lb I&O - Last 24 Hours: Intake & Output 03/25/17 03/26/17 03/26/17 23:59 07:59 15:59 Intake Total 1050 1000 Output Total 1965 22 80 Balance -915 978 -80 Med Orders - Current: Current Medications Hydrocodone Bitart/Acetaminophen ([place] 325-5 Mg) 2 tab PO Q4H PRN PRN Reason: Pain Last Admin: 03/26/17 14:17 Dose: 2 tab Cephalexin (Keflex) 500 mg PO Q6HR [facility] Last Admin: 03/26/17 12:01 Dose: 500 mg Enoxaparin Sodium (Lovenox) 40 mg SUBCUT Q24H [facility] Last Admin: 03/26/17 10:59 Dose: Not Given Guaifenesin/Dextromethorphan (Robitussin Dm) 5 ml PO Q4H PRN PRN Reason: Cough Last Admin: 03/26/17 14:25 Dose: 5 ml Lactated Ringer's (Ringers, Lactated) 1,000 mls @ 125 mls/hr IV ASDIRECTED [facility] Last Admin: 03/25/17 00:57 Dose: 125 mls/hr Metoprolol Succinate (Toprol Xl) 100 mg PO BEDTIME [facility] Last Admin: 03/25/17 21:02 Dose: 100 mg Morphine Sulfate (Morphine) 2 mg IVPUSH Q2H PRN PRN Reason: Pain Ondansetron HCl (Zofran Odt) 4 mg PO Q4H PRN PRN Reason: Nausea/Vomiting Losartan 25 Mg Tab* (Pt Own Med*) 0 each PO BEDTIME [facility] Last Admin: 03/25/17 21:02 Dose: 1 each Scopolamine (Transderm-Scop) 1.5 mg TRDERM .ONCE PRN PRN Reason: Post Op Nausea Last Admin: 03/24/17 07:27 Dose: 1.5 mg Sodium Chloride (Saline Flush) 10 ml FLUSH ASDIRECTED PRN PRN Reason: Keep Vein Open Sodium Chloride (Saline Flush) 2.5 ml FLUSH ASDIRECTED PRN PRN Reason: Keep Vein Open Discontinued Medications Hydrocodone Bitart/Acetaminophen ([place] 325-5 Mg) 1 tab PO Q4H PRN PRN Reason: Pain Hydrocodone Bitart/Acetaminophen ([place] 325-5 Mg) 2 tab PO Q4H PRN PRN Reason: Pain Last Admin: 03/25/17 12:58 Dose: 2 tab Bupivacaine HCl (Sensorcaine-Mpf 0.25%) 10 ml INJECT ONETIME ONE Stop: 03/23/17 16:49 Last Admin: 03/24/17 10:58 Dose: Not Given Bupivacaine HCl (Sensorcaine-Mpf 0.25%) Confirm Administered Dose 20 ml .ROUTE .STK-MED ONE Stop: 03/24/17 07:37 Cephalexin (Keflex) 500 mg PO Q6HR [facility] Last Admin: 03/25/17 20:49 Dose: Not Given Cephalexin (Keflex) 500 mg PO Q6HR [facility] Dexamethasone (Dexamethasone) Confirm Administered Dose 20 mg .ROUTE .STK-MED ONE Stop: 03/24/17 07:16 Diphenhydramine HCl (Benadryl) Confirm Administered Dose 50 mg .ROUTE .STK-MED ONE Stop: 03/24/17 07:16 Diphenhydramine HCl (Benadryl) 25 mg IVPUSH ONETIME ONE Stop: 03/24/17 10:54 Last Admin: 03/24/17 11:03 Dose: 12.5 mg Diphenhydramine HCl (Benadryl) Confirm Administered Dose 50 mg .ROUTE .STK-MED ONE Stop: 03/24/17 11:01 Last Admin: 03/24/17 13:11 Dose: Not Given Enoxaparin Sodium (Lovenox) 40 mg SUBCUT Q24H [facility] Last Admin: 03/25/17 11:02 Dose: 40 mg Fentanyl (Sublimaze) Confirm Administered Dose 100 mcg .ROUTE .STK-MED ONE Stop: 03/24/17 07:12 Fentanyl (Sublimaze) 50 mcg IVPUSH .Q5MIN PRN PRN Reason: Pain Last Admin: 03/24/17 10:45 Dose: 50 mcg Fentanyl (Sublimaze) Confirm Administered Dose 100 mcg .ROUTE .STK-MED ONE Stop: 03/24/17 09:31 Guaifenesin/Codeine Phosphate (Robitussin Ac) 5 ml PO Q4H PRN PRN Reason: Cough Hydromorphone HCl (Dilaudid) Confirm Administered Dose 2 mg .ROUTE .STK-MED ONE Stop: 03/24/17 08:11 Cefazolin Sodium/Dextrose 2 gm (/ Premix) 50 mls @ 100 mls/hr IV ONETIME ONE Stop: 03/23/17 17:17 Last Admin: 03/24/17 10:58 Dose: Not Given Acetaminophen 1,000 mg/ Premix 100 mls @ 400 mls/hr IV .QNOW [facility] Last Admin: 03/24/17 07:28 Dose: 400 mls/hr Lidocaine (Xylocaine-Mpf 2%) Confirm Administered Dose 5 ml .ROUTE .STK-MED ONE Stop: 03/24/17 07:12 Metoprolol Succinate (Toprol Xl) 100 mg PO BEDTIME [facility] Last Admin: 03/24/17 21:26 Dose: Not Given Midazolam HCl (Versed 1 Mg/Ml) Confirm Administered Dose 2 mg .ROUTE .STK-MED ONE Stop: 03/24/17 07:12 Morphine Sulfate (Morphine) 2 mg IVPUSH Q2H PRN PRN Reason: Pain Octyl Cyanoacrylate (Dermabond Prineo) 1 applic TOP .STK-MED ONE Stop: 03/24/17 09:41 Ondansetron HCl (Zofran) Confirm Administered Dose 4 mg .ROUTE .STK-MED ONE Stop: 03/24/17 07:12 Ondansetron HCl (Zofran Odt) 4 mg PO Q4H PRN PRN Reason: Nausea/Vomiting Losartan 25 Mg Tab* (Pt Own Med*) 0 each PO BEDTIME [facility] Last Admin: 03/24/17 21:26 Dose: Not Given Propofol (Diprivan 20 Ml) Confirm Administered Dose 400 mg .ROUTE .STK-MED ONE Stop: 03/24/17 07:12 Sodium Chloride (Saline Flush) 10 ml FLUSH ASDIRECTED PRN PRN Reason: Keep Vein Open Sodium Chloride (Saline Flush) 2.5 ml FLUSH ASDIRECTED PRN PRN Reason: Keep Vein Open - Exam General: Alert, Oriented, Cooperative HEENT: Pupils Equal Skin: Warm, Dry Wound/Incisions: Healing Well, Drainage (in PRATIBHA) Psy/Mental Status: Alert, Normal Affect, Normal Mood - Problem List & Annotations (1) Wound dehiscence, surgical SNOMED Code(s): 676664946 Code(s): T81.31XA - DISRUPTION OF EXTERNAL OPERATION (SURGICAL) WOUND, NEC, INIT Status: Acute Priority: High Current Visit: Yes Qualifiers: Encounter type: initial encounter Qualified Code(s): T81.31XA - Disruption of external operation (surgical) wound, not elsewhere classified, initial encounter (2) S/P hernia repair SNOMED Code(s): 15714722658789 Code(s): Z98.890 - OTHER SPECIFIED POSTPROCEDURAL STATES; Z87.19 - PERSONAL HISTORY OF OTHER DISEASES OF THE DIGESTIVE SYSTEM Status: Acute Priority: Medium Current Visit: No - Problem List Review Problem List Initiated/Reviewed/Updated: Yes - My Orders Last 24 Hours: My Active Orders 03/25/17 18:00 Cephalexin [Keflex] 500 mg PO Q6HR 03/25/17 18:43 Acetaminophen/HYDROcodone [[place] 325-5 MG] 2 tab PO Q4H PRN 03/25/17 18:44 Morphine 2 mg IVPUSH Q2H PRN Ondansetron [Zofran ODT] 4 mg PO Q4H PRN 03/25/17 18:45 Sodium Chloride 0.9% [Saline Flush] 10 ml FLUSH ASDIRECTED PRN Sodium Chloride 0.9% [Saline Flush] 2.5 ml FLUSH ASDIRECTED PRN 03/25/17 21:00 Metoprolol Succinate [Toprol XL] 100 mg PO BEDTIME Patient's Own Medication [Ptom] 0 each PO BEDTIME 03/25/17 21:06 Dextromethorphan/guaiFENesin [Robitussin DM] 5 ml PO Q4H PRN 03/26/17 10:30 Enoxaparin [Lovenox] 40 mg SUBCUT Q24H 03/26/17 15:23 Ready for Discharge [RC] PER UNIT ROUTINE - Plan Plan:: Home today. [place] keflex and codeine cough syrup. Ambulate and binder at all times. OK to shower. Follow up next week, sooner with any issues or concerns.
[2017-03-26] MEDS ORDERED: Cephalexin 500 MG Cap PO SCH (18:00)
--- NOTE | 2017-03-29 15:34 | OR ---
SURGEON: ROMERO MCGINNIS MD DATE OF PROCEDURE: 03/24/2017 PREOPERATIVE DIAGNOSIS: Umbilical stump compromise, status post umbilical hernia repair with wound dehiscence. POSTOPERATIVE DIAGNOSIS: Umbilical stump compromise, status post umbilical hernia repair with wound dehiscence. PROCEDURE: Debridement and closure of abdominal wound dehiscence and removal of compromised umbilical stump. ANESTHESIA: General ET tube with local. TRAFFIC OPERATIONS MANAGER: DEN Anthony INDICATIONS: Ms. Alexander is a 62-year-old female seen today after umbilical hernia repair during a separate surgery. Unfortunately, with the umbilical hernia repair, the stalk was compromised and has struggled to survive. It has finally declared itself and is nonviable. The wound is actually coming apart from the remainder of the abdominal skin. Risks and benefits of removal of the umbilical stump were discussed with her, and she was in agreement to proceed. Risks were including, but not limited to, bleeding, infection, damage to underlying or overlying structures, possible need for future interventions, and possible scarring. We will go through the original low-transverse incision. PROCEDURE IN DETAIL: After informed consent was obtained and placed on the chart, the patient was brought to the operating theater and laid in supine position. After adequate general anesthetic was obtained, the area was prepped and draped, and a time-out was completed to confirm side and site. The wound was then entered through the lower abdominal incision. Dissection was carried down the abdominal wall up to the umbilicus. Grossly devitalized tissue was removed and the area was meticulously hemostased and all tissue was ensured to be viable. Once nonhealthy tissue was debrided, the area was copiously irrigated, additional abdominal wall plication was undertaken to allow appropriate wound closure without tension using 0 Ethibond sutures. Once this was completed, the abdominal skin flap was redraped and sutured in place using deep 2-0 PDS sutures, running 3-0 PDS for the dermis, and running 4- 0 subcuticular for the skin. Dressed with Prineo wound care closure system and the umbilicus was closed in a linear fashion using deep Monocryl sutures and a Prolene for the skin. Two size 10 PRATIBHA drains were placed in the upper and lower portions of the abdomen around the umbilical stump debridement area and these were sutured in place using a 3-0 Prolene stitch on the right side. The lesion was then dressed with a nonstick dressing and an abdominal binder. The patient tolerated this well. All counts and needles were correct at the end of the case. FOLLOWUP INSTRUCTIONS: The patient will be maintained in the hospital for pain control post debridement and close observation. KARIN GARCIA /[id number]
== END 2017-03-26 17:00 | disposition home or self-care (01) ==
LOC: MW.SDS 06:44 → MW.MS 10:35 → UNDOADMIN 10:35 → MW.MS 13:23 → MW.SDS 03-25 10:20 → MW.MS 03-25 10:21
PROVIDERS: ADMIT Plastic Surgery; ATTEND Plastic Surgery
DX: T81.31XA Disruption of external operation (surgical) wound, not elsewhere classified, initial encounter (principal); G47.33 Obstructive sleep apnea (adult) (pediatric); M17.11 Unilateral primary osteoarthritis, right knee; M17.12 Unilateral primary osteoarthritis, left knee; I10 Essential (primary) hypertension; M19.90 Unspecified osteoarthritis, unspecified site; M54.9 Dorsalgia, unspecified; E66.01 Morbid (severe) obesity due to excess calories; Z68.43 Body mass index [BMI] 50.0-59.9, adult; Z79.51 Long term (current) use of inhaled steroids; Z79.899 Other long term (current) drug therapy; Z98.84 Bariatric surgery status; Z98.890 Other specified postprocedural states; Z99.89 Dependence on other enabling machines and devices
CPT/HCPCS: 11042; 96360; 96361; 96372; A9270; G0378; J1100; J1170; J1200; J1650; J2250; J2405; J3010; J7120; 00840; J2704